=== PATIENT | female | born 1970 | race African-American/Black ===

== ENCOUNTER 2017-08-29 18:53 | Emergency (ER) | payer MEDICAID ==
[~2017-08-29] VITALS: Ht 162.6 cm; Wt 61.0 kg
[2017-08-29 19:26] VITALS: BP 132/52
[2017-08-29] MEDS ORDERED: ACETAMINOPHEN 500MG TABLET PO ONE (20:15)
[2017-08-29] MEDS ORDERED: KETOROLAC 60MG/2ML VIAL IM ONE (20:15)
== END 2017-08-29 21:12 | disposition home or self-care (01) ==
LOC: ER 21:12
DX: M54.31 Sciatica, right side (principal); F12.10 Cannabis abuse, uncomplicated; Z98.890 Other specified postprocedural states
CPT/HCPCS: 96372; 99283; J1885; Z7610